=== PATIENT | female | born 1965 | race Caucasian/White ===

== ENCOUNTER 2019-09-13 19:39 | Emergency (ER) | payer OTHER ==
--- OUTSIDE RECORDS SUMMARY | 2019-09-13 19:46 | XMS REPORT | Summary of Care ---
:1965 Author Organization [facility] Address [address] [facility] [place] [address] Care Team Providers Name Role Phone Caren Sykes Primary Care Provider Reason for Visit Auth/Cert Status Reason Specialty Diagnoses / Procedures Referred By Contact Referred To Contact Diagnoses Gastro-esophageal reflux disease with esophagitis Procedures OK EGD TRANSORAL BIOPSY SINGLE/MULTIPLE Encounter Details Date Type Department Care Team Description 07/27/2019 Hospital Encounter [facility] Neetu Quintero MD Short Procedure [address] [place] [address] [place] [address] [phone] Allergies Active Allergy Reactions Severity Noted Date Comments Betadine Plus Rash 12/26/2013 Dye Allergy Rash 12/26/2013 Blue dye in dish soap Latex Rash Medium 12/26/2013 documented as of this encounter (statuses as of 07/28/2019) Medications Medication Sig Dispensed Refills Start Date End Date Status Cholecalciferol Take by mouth 0 Active (VITAMIN D) 1000 UNITS EVERY OTHER DAY. Oral Cap Multiple Vitamin Take by mouth. 0 Active (MULTIVITAMINS PO) [place]-3 Fatty Acids Take 1 Cap by 0 Active (FISH OIL) 1000 MG Oral mouth TWICE Cap DAILY. albuterol HFA Take 2 Puffs by 1 Inhaler 0 09/07/2017 Active (VENTOLIN) 108 (90 inhalation EVERY Base) MCG/ACT SIX HOURS Inhalation Aero NEEDED SolnIndications: Chest (wheezing/coughin congestion g spasm). fluticasone (FLONASE) [place] 1 [place] in 16 g 5 03/09/2018 Active 50 MCG/ACT Nasal nose TWICE DAILY. SuspensionIndications: Seasonal allergic rhinitis, unspecified trigger Additional information Patient taking differently: 1 [place] Nasal PRN, Reported on 03/30/2019 3:40 PM amLodipine (NORVASC) 5 MG Oral TAKE 1 TABLET BY MOUTH 90 Tab 1 02/15/2019 Active TabIndications: Benign EVERY DAY hypertension pantoprazole (PROTONIX) 40 MG TAKE 1 TABLET BY MOUTH 180 Tab 1 02/25/2019 Active Oral Tab ECIndications: TWICE A DAY Gastroesophageal reflux disease without esophagitis sucralfate (CARAFATE) 1 GM Oral TAKE 1 TAB BY MOUTH 120 Tab 5 2018 Active TabIndications: Gastroesophageal DIRECTED. TAKE WITH reflux disease, esophagitis MEALS AND AT BEDTIME presence not specified duloxetine (CYMBALTA) 60 MG Oral TAKE 1 CAPSULE BY MOUTH 90 Cap 1 2018 Active CAPSULE ENTERIC COATED EVERY DAY PARTICLESIndications: Fibromyalgia Losartan Potassium 100 MG Oral TAKE 1 TABLET BY MOUTH 90 Tab 1 03/23/2019 Active TabIndications: Benign EVERY DAY hypertension Misc Natural Products Take 1 Tab by mouth 0 Active (GLUCOSAMINE CHOND MSM FORMULA) TWICE DAILY. Oral Tab atorvastatin (LIPITOR) 40 MG TAKE 1 TABLET BY MOUTH 90 Tab 1 06/06/2019 Active Oral Tab EVERY DAY cyclobenzaprine (FLEXERIL) 5 MG TAKE 2 TABS BY MOUTH 120 Tab 2 06/13/2019 Active Oral TabIndications: TWO TIMES DAILY Fibromyalgia NEEDED (MUSCLE SPASM). [facility] CALCIUM CITRATE +D 315-250 TAKE 1 TABLET BY MOUTH 60 Tab 5 07/20/2019 Active MG-UNIT Oral Tab TWICE A DAY documented as of this encounter (statuses as of 07/28/2019) Active Problems Problem Noted Date Gastroesophageal reflux disease with esophagitis 01/13/2019 Gastric polyps 01/13/2019 Hepatic steatosis 06/22/2018 Impaired fasting glucose 06/22/2018 Benign hypertension 04/23/2017 Fibromyalgia 04/23/2017 IBS (irritable bowel syndrome) 04/23/2017 Lactose intolerance 04/23/2017 Mixed hyperlipidemia 04/23/2017 JIE (obstructive sleep apnea) 04/23/2017 Closed fracture of distal end of left fibula with routine healing 07/15/2016 BMI 32.0-32.9,adult 01/09/2014 Rotator cuff (capsule) sprain 01/09/2014 Impingement syndrome of left shoulder 12/26/2013 documented as of this encounter (statuses as of 07/28/2019) Social History Tobacco Use Types Packs/Day Years Used Date Never Smoker Smokeless Tobacco: Never Used Alcohol Use Drinks/Week oz/Week Comments No Sex Assigned at Date Recorded Not on file Job Start Date Occupation Industry Not on file Not on file Not on file Travel History Travel Start Travel End No recent travel history available. documented as of this encounter Last Filed Vital Signs Vital Sign Reading Time Taken Comments Blood Pressure 137/71 07/27/2019 9:20 AM EST Pulse 78 07/27/2019 9:20 AM EST Temperature 36.5 07/27/2019 6:27 AM EST C (97.7 F) Respiratory Rate 20 07/27/2019 9:20 AM EST Oxygen Saturation 96% 07/27/2019 9:20 AM EST Inhaled Oxygen Concentration - - Weight 96 kg (211 lb 9.6 oz) 07/27/2019 6:27 AM EST Height 162.6 cm (5' 4") 07/27/2019 6:27 AM EST Body Mass Index 36.32 07/27/2019 6:27 AM EST documented in this encounter Discharge Instructions InstructionsScLetty ruth NP - 07/27/2019Discharge Instructions: 1. Avoid eating solid foods for 3-4 hours after surgery. Start with liquids, and then slowly advanceto solids 2. Please seek medical attention if you should experience any nausea, vomiting, fevers, chills, or abdominal pain 3. Please take your medications as prescribed 4. Follow up in our bariatric office in 2 weeks [facility] [place] [address] [place] [place] [address] - General Surgery documented in this encounter Plan of Treatment Date Type Specialty Care Team Description 08/11/2019 Office Visit Bariatrics Neetu Quintero MD [address] [address] 08/12/2019 IPPR Dental Marcia Jenkins [facility] [address] [place] [address] [address] 04/26/2020 Office Visit Dermatology Todd Galarza PA-C [address] [place] [address] [phone] Health Maintenance Due Date Last Done Comments DTaP/Tdap/Td Vaccines (1 - 1978 Tdap) ZOSTER IMMUNIZATION SERIES 2017 (1 of 2) DEPRESSION SCREENING 12/16/2019 12/15/2018, 06/30/2017 DIABETES SCREENING 06/08/2020 06/08/2019, 12/15/2018, 11/10/2018, Additional history exists LIPID DISORDER SCREENING 06/08/2020 06/08/2019, 06/06/2019, 12/15/2018, Additional history exists MAMMOGRAM (SCREENING) 07/13/2020 07/13/2019, 07/06/2018, 06/22/2017, Additional history exists Colonoscopy 09/27/2024 09/27/2014 HEPATITIS A IMMUNIZATION Aged Out No longer eligible SERIES based on patient's age to complete this topic HPV IMMUNIZATION SERIES Aged Out No longer eligible based on patient's age to complete this topic MENINGOCOCCAL VACCINE IMM Aged Out No longer eligible based on patient's age to complete this topic PNEUMOCOCCAL 0-64 YRS Aged Out No longer eligible based on patient's age to complete this topic documented as of this encounter Goals Goal Patient Goal Associated Recent Patient-Stated? Author Type Problems Progress Blood Pressure Blood Pressure 137/71 No Abelino, < 140/90 (07/27/2019 DO Navarro 9:20 AM EST) Note: This is an individualized treatment (blood pressure) goal for Lisa Hankins: Displayed above (on the left) is your goal for blood pressure control. Your most recent blood pressure is also shown above, on the right. You should try to achieve blood pressures that are lower than your goal listed above (on the left). Weight loss vs. 18 mo Lifestyle 6.78 (07/27/2019 6:27 AM No Navarro Roca DO max (lbs) >= 10 EST) Note: This is an individualized lifestyle goal for Lisa Hankins: Your body mass index (BMI) is more than 30. You should lose weight. A reasonable starting goal is to lose 10 pounds. Displayed above is how many pounds you have lost thus far towards your 10 pound weight loss goal. Take all prescribed medications as Self-management No Schoenberg, Navarro, DO directed Note: This is an individualized self-management goal for Lisa Hankins: Please take all prescribed medications as directed. 1. Do not skip doses. If you cannot afford your medications, talk with your doctor. 2. Use a pill reminder system such as a pill box if needed. Your pharmacist can help you with this. 3. Contact your Pharmacy 5 days before your medication runs out. If you cannot take your medications for any reasons, talk with your doctor. 4. Please bring all of your medication bottles and inhalers (or a list of all your medications/inhalers) with you to every visit. Potential barriers to meeting all of your care plan goals will continue to be addressed on an ongoing basis. documented as of this encounter Procedures Procedure Name Priority Date/Time Associated Diagnosis Comments XR RPH IMAGESTREAM Routine 07/27/2019 Results for 7:38 AM EST this procedure are in the results section. EGD WITH BIOPSY Planned Trip to 07/27/2019 Gastroesophageal OR 7:32 AM EST reflux disease with esophagitis documented in this encounter Results XR RPH IMAGESTREAM (07/27/2019 7:38 AM EST) Specimen Narrative Performed At [facility] OR [facility]. If no PACS link is available, no images were [facility] POCT taken and saved to PACS. Performing Organization Address City/State/Zipcode Phone Number [facility] [address] [place] [address] documented in this encounter Visit Diagnoses Diagnosis Gastroesophageal reflux disease with esophagitis documented in this encounter Administered Medications Medication Order MAR Action Action Date Dose Rate Site FentaNYL (PF) (SUBLIMAZE) injection (PF) 25 mcg 25 mcg, Intravenous Push, PRU Q5MIN PRN, Starting Thu07/27/19 at 0855, Until Thu07/27/19 at 1219, Mild Pain (pain scale 1-3) - IV - 1st line - if immediate effect required or patient cannot tolerate PO, 4 Recovery FentaNYL (PF) (SUBLIMAZE) injection (PF) 50 mcg 50 mcg, Intravenous Push, PRU Q5MIN PRN, Starting Thu07/27/19 at 0855, Until Thu07/27/19 at 1219, Moderate Pain (pain scale 4-6) - IV - 1st line - if immediate effect required or patient cannot tolerate PO, Severe Pain (pain scale 7-10) - IV - 1st line - if immediate effect required or patient cannot tolerate PO, 4 Recovery haloperidol (HALDOL) injection 0.65 mg Given 07/27/2019 9:07 AM EST 0.65 mg 0.65 mg, Intravenous Push, PRU X1 PRN, 1 dose, Starting Thu07/27/19 at 0855, Until Thu07/27/19 at 0907, Nausea/Vomiting - IV - 3rd line - if immediate effect required or patient cannot tolerate PO and no relief 1 hour after administration of 2nd line agent, 4 Recovery HYDROmorphone (DILAUDID) syringe 0.3 mg 0.3 mg, Intravenous Push, PRU Q5MIN PRN, Starting Thu07/27/19 at 0855, Until Thu07/27/19 at 1219, Mild Pain (pain scale 1-3) IV - 2nd line - if immediate effect required or cannot tolerate PO & still had mild pain 4 hrs after admin of 1st line agent or patient did not tolerate 1st line agent, 4 Recovery HYDROmorphone (DILAUDID) syringe 0.5 mg 0.5 mg, Intravenous Push, PRU Q5MIN PRN, 2 doses, Starting Thu07/27/19 at 0855 , Until Thu07/27/19 at 1219, Moderate Pain (pain scale 4-6)IV 2nd line- if immediate effect required or cannot tolerate PO & still had moderate pain 2 hrs after admin of 1st line agent or did not tolerate 1st line agent, Severe Pain (pain scale 7-10)IV 2nd line - if immediate effect required or cannot tolerate PO & no still has severe pain 1 hr after admin of 1st line agent or did not tolerate 1st line agent, 4 Recovery meperidine (DEMEROL) syringe 25 mg 25 mg, Intravenous Push, PRU Q5MIN PRN, 2 doses, Starting Thu07/27/19 at 0855 , Until Thu07/27/19 at 1219, Shivering/Chills/Rigors, 4 Recovery normal saline IV Intravenous, at 125 mL/hr, PRU CONTINUOUS, Starting Thu07/27/19 at 0900, Until Thu07/27/19 at 1219, 4 Recovery, PRU, ondansetron (ZOFRAN) injection 4 mg 4 mg, Intravenous Push, PRU X1 PRN, 1 dose, Starting Thu07/27/19 at 0855, Until 12/18/19 at 1219, Nausea/Vomiting - IV - 1st line - If immediate effect required or patient cannot tolerate PO, 4 Recovery prochlorperazine (COMPAZINE) injection 2.5 mg 2.5 mg, Intravenous Push, PRU PRN, 2 doses, Starting Thu07/27/19 at 0855, Until Thu07/27/19 at 1219, Nausea/Vomiting - IV - 2nd line - if immediate effect required or patient cannot tolerate PO and no relief 1 hours after administration of 1st line agent, 4 Recovery scopolamine (TRANSDERM SCOP) Patch applied 07/27/2019 7:33 AM EST 1 mg Ear - Left transdermal patch 72 hour 1 mg 1 mg, Transdermal, NOW, 1 dose, Thu07/27/19 at 0730, Actual mg amount of scopolamine displayed on product package reflects total amount in the patch which includes overfill. The patch is designed to deliver 1 mg of scopolamine over 72 hours. Rotate sites. Remove prior to MRI to avoid dasilva. Please make sure to remove previous patch from site., documented in this encounter Insurance Payer Benefit Plan / Subscriber ID Effective Phone Address Type Group Dates [facility] xxxxxxxx 2017-Pre [facility] sent (Home) [place] [phone] (Work) documented as of this encounter
--- OUTSIDE RECORDS SUMMARY | 2019-09-13 19:46 | XMS REPORT | Summary of Care ---
:1965 Author Organization [facility] Address [address] [address] Care Team Providers Name Role Phone SykesCaren Primary Care Provider Reason for Referral MRI/CAT/PET Scan (Routine) Status Reason Specialty Diagnoses / Procedures Referred By Contact Referred To Contact Closed Diagnoses Abnormal mammogram Genesis Garcia MD Procedures US BREAST LIMITED LEFT [address] [address] Encounter Details Date Type Department Care Team Description 07/26/2019 Hospital Encounter Scottie De León JENNIFER Outpatient [address] [place] [address] Allergies Active Allergy Reactions Severity Noted Date [...] Take by mouth. 0 Active (MULTIVITAMINS PO) [place]-3 Fatty Acids Take 1 Cap by 0 Active (FISH OIL) 1000 MG Oral mouth TWICE Cap DAILY. albuterol HFA Take 2 Puffs by 1 Inhaler 0 09/07/2017 Active (VENTOLIN) 108 (90 inhalation EVERY Base) MCG/ACT SIX HOURS Inhalation Aero NEEDED SolnIndications: Chest (wheezing/coughin congestion g spasm). fluticasone (FLONASE) [place] 1 [place] in 16 g 5 03/09/2018 Active 50 MCG/ACT Nasal nose TWICE DAILY. SuspensionIndications: Seasonal allergic rhinitis, unspecified trigger Additional information Patient taking differently: 1 [place] Nasal PRN, Reported on 03/30/2019 3:40 PM [...] CHOND MSM FORMULA) TWICE DAILY. Oral Tab clotrimazole (LOTRIMIN) 1 % Apply twice a day to 1 Tube 0 05/19/2019 Active Apply externally affected CreamIndications: Fungal infection atorvastatin (LIPITOR) 40 MG TAKE 1 TABLET [...] of this encounter Last Filed Vital Signs Not on filedocumented in this encounter Plan of Treatment Date Type Specialty Care Team Description 08/11/2019 Office Visit Bariatrics Neetu Quintero MD [address] [address] 08/12/2019 IPPR Dental Marcia Jenkins [facility] [address] [address] 04/26/2020 Office Visit Dermatology Todd Galarza PA-C [address] [place] [address] Health Maintenance Due Date Last Done Comments [...] Take all prescribed medications as Self-management No Navarro Roca DO directed Note: This is an individualized [...] encounter Procedures Procedure Name Priority Date/Time Associated Comments Diagnosis US BREAST LIMITED Routine 07/26/2019 10:31 AM Abnormal mammogram Results for this LEFT EST procedure are in the results section. MAMMO DIAGNOSTIC Routine 07/26/2019 9:38 AM Abnormal mammogram Results for this UNILAT LEFT EST procedure are in the results section. documented in this encounter Results US BREAST LIMITED LEFT (07/26/2019 10:31 AM EST) Specimen Impressions Performed At 1. No mammographic evidence of malignancy in the left breast. 2. Finding at screening mammography is felt to correspond to normal valvular component and is retrospectively unchanged when compared to 2015 prior. Recommendation: Routine screening mammography per ACR and SBI guidelines. BI-RADS Assessment: Category 2: Benign finding(s). Urgency: Routine. This is a routine medical imaging report. Signed by Sarahi Tavarez MD on 07/26/2019 10:49 AM Narrative Performed At Procedure(s): US BREAST LIMITED LEFT, MAMMO DIAGNOSTIC UNILAT LEFT Date of service: 07/26/2019 10:13 AM Provided clinical information: 54 years, Female, "Abn jennifer; new or enlarging mass, circumscribed. DIAGNOSTIC LEFT MAMMOGRAM TECHNIQUE:. Implant displaced CC and LM as well as spot compression CC and MLO left digital diagnostic mammographic images were obtained. Images were analyzed by a CAD system. Comparison studies: Comparison is made to screening mammography dated July 13, 2019 as well as multiple prior screening mammograms dating back to May 2015 Reason for examination: Back from screening for additional views Breast composition: b. There are scattered areas of fibroglandular density. Mammographic Findings: Intact subpectoral saline implant is in place. The previously described ovoid asymmetry projecting over the valvular component of the saline implant is better demonstrated on spot compression views. This appears unchanged compared to prior exam, specifically unchanged when compared to 2015 prior left MLO view and likely reflects a component of the implant valve. As a conservative measure, further assessment with ultrasound is indicated, report of which immediately follows below: DIAGNOSTIC TARGETED LEFT BREAST ULTRASOUND Procedure and materials: Radiologist performed a targeted physical examination and real-time targeted ultrasound of left breast, accompanied by female certified performance technologist. Physical examination of the breast by radiologist demonstrates no focal palpable abnormality. Ultrasound findings: Sonographic evaluation of the left breast with specific attention to the implant capsule and implant valve demonstrates no abnormality. Procedure Note Interface, Rad Results - 07/26/2019 10:51 AM EST Procedure(s): US BREAST LIMITED LEFT, MAMMO DIAGNOSTIC UNILAT LEFT Date of service: 07/26/2019 10:13 AM Provided clinical information: 54 years, Female, "Abn jennifer; new or enlarging mass, circumscribed. DIAGNOSTIC LEFT MAMMOGRAM TECHNIQUE:. Implant displaced CC and LM as well as spot compression CC and MLO left digital diagnostic mammographic images were obtained. Images were analyzed by a CAD system. Comparison studies: Comparison is made to screening mammography dated July 13, 2019 as well as multiple prior screening mammograms dating back to May 2015 Reason for examination: Back from screening for additional views Breast composition: b. There are scattered areas of fibroglandular density. Mammographic Findings: Intact subpectoral saline implant is in place. The previously described ovoid asymmetry projecting over the valvular component of the saline implant is better demonstrated on spot compression views. This appears unchanged compared to prior exam, specifically unchanged when compared to 2014 prior left MLO view and likely reflects a component of the implant valve. As a conservative measure, further assessment with ultrasound is indicated, report of which immediately follows below: DIAGNOSTIC TARGETED LEFT BREAST ULTRASOUND Procedure and materials: Radiologist performed a targeted physical examination and real-time targeted ultrasound of left breast, accompanied by female certified performance technologist. Physical examination of the breast by radiologist demonstrates no focal palpable abnormality. Ultrasound findings: Sonographic evaluation of the left breast with specific attention to the implant capsule and implant valve demonstrates no abnormality. IMPRESSION 1. No mammographic evidence of malignancy in the left breast. 2. Finding at screening mammography is felt to correspond to normal valvular component and is retrospectively unchanged when compared to 2014 prior. Recommendation: Routine screening mammography per ACR and SBI guidelines. BI-RADS Assessment: Category 2: Benign finding(s). Urgency: Routine. This is a routine medical imaging report. Signed by Sarahi Tavarez MD on 07/26/2019 10:49 AM MAMMO DIAGNOSTIC UNILAT LEFT (07/26/2019 9:38 AM EST) Specimen Impressions Performed At 1. No mammographic evidence of malignancy in the left breast. 2. Finding at screening mammography is felt to correspond to normal valvular component and is retrospectively unchanged when compared to 2014 prior. Recommendation: Routine screening mammography per ACR and SBI guidelines. BI-RADS Assessment: Category 2: Benign finding(s). Urgency: Routine. This is a routine medical imaging report. Signed by Sarahi Tavarez MD on 07/26/2019 10:49 AM Narrative Performed At Procedure(s): US BREAST LIMITED LEFT, MAMMO DIAGNOSTIC UNILAT LEFT Date of service: 07/26/2019 10:13 AM Provided clinical information: 54 years, Female, "Abn jeninfer; new or enlarging mass, circumscribed. DIAGNOSTIC LEFT MAMMOGRAM TECHNIQUE:. Implant displaced CC and LM as well as spot compression CC and MLO left digital diagnostic mammographic images were obtained. Images were analyzed by a CAD system. Comparison studies: Comparison is made to screening mammography dated July 13, 2019 as well as multiple prior screening mammograms dating back to May 2015 Reason for examination: Back from screening for additional views Breast composition: b. There are scattered areas of fibroglandular density. Mammographic Findings: Intact subpectoral saline implant is in place. The previously described ovoid asymmetry projecting over the valvular component of the saline implant is better demonstrated on spot compression views. This appears unchanged compared to prior exam, specifically unchanged when compared to 2014 prior left MLO view and likely reflects a component of the implant valve. As a conservative measure, further assessment with ultrasound is indicated, report of which immediately follows below: DIAGNOSTIC TARGETED LEFT BREAST ULTRASOUND Procedure and materials: Radiologist performed a targeted physical examination and real-time targeted ultrasound of left breast, accompanied by female certified performance technologist. Physical examination of the breast by radiologist demonstrates no focal palpable abnormality. Ultrasound findings: Sonographic evaluation of the left breast with specific attention to the implant capsule and implant valve demonstrates no abnormality. Procedure Note Interface, Rad Results - 07/26/2019 10:51 AM EST Procedure(s): US BREAST LIMITED LEFT, MAMMO DIAGNOSTIC UNILAT LEFT Date of service: 07/26/2019 10:13 AM Provided clinical information: 54 years, Female, "Abn jennifer; new or enlarging mass, circumscribed. DIAGNOSTIC LEFT MAMMOGRAM TECHNIQUE:. Implant displaced CC and LM as well as spot compression CC and MLO left digital diagnostic mammographic images were obtained. Images were analyzed by a CAD system. Comparison studies: Comparison is made to screening mammography dated July 13, 2019 as well as multiple prior screening mammograms dating back to May 2015 Reason for examination: Back from screening for additional views Breast composition: b. There are scattered areas of fibroglandular density. Mammographic Findings: Intact subpectoral saline implant is in place. The previously described ovoid asymmetry projecting over the valvular component of the saline implant is better demonstrated on spot compression views. This appears unchanged compared to prior exam, specifically unchanged when compared to 2014 prior left MLO view and likely reflects a component of the implant valve. As a conservative measure, further assessment with ultrasound is indicated, report of which immediately follows below: DIAGNOSTIC TARGETED LEFT BREAST ULTRASOUND Procedure and materials: Radiologist performed a targeted physical examination and real-time targeted ultrasound of left breast, accompanied by female certified performance technologist. Physical examination of the breast by radiologist demonstrates no focal palpable abnormality. Ultrasound findings: Sonographic evaluation of the left breast with specific attention to the implant capsule and implant valve demonstrates no abnormality. IMPRESSION 1. No mammographic evidence of malignancy in the left breast. 2. Finding at screening mammography is felt to correspond to normal valvular component and is retrospectively unchanged when compared to 2015 prior. Recommendation: Routine screening mammography per ACR and SBI guidelines. BI-RADS Assessment: Category 2: Benign finding(s). Urgency: Routine. This is a routine medical imaging report. Signed by Sarahi Tavarez MD on 07/26/2019 10:49 AM documented in this encounter Visit Diagnoses Diagnosis Abnormal mammogram Abnormal mammogram, unspecified documented in this encounter Insurance Payer Benefit Plan / Subscriber ID Effective Phone Address Type Group Dates [facility] xxxxxxxx 2017-Pre [facility] sent (Home) [place], [place] [phone] (Work) documented as of this encounter
--- OUTSIDE RECORDS SUMMARY | 2019-09-13 19:46 | XMS REPORT | Continuity of Care Document ---
:1965 External Reference #:[id number] Author Name Lucie Donahue PA Address [address] [place] [address] Care Team Providers Name Role Phone Lucie Donahue PA - Medical Care Team Information Fabric Machine Operator [phone] Problems Active Problems Provider Date Benign essential hypertension Lucie Donahue PA Onset: 08/19/2019 Allergic rhinitis Lucie Donahue PA Onset: 08/19/2019 Diaphragmatic hernia Lucie Donahue PA Onset: 08/19/2019 Obstructive sleep apnea syndrome Lucie Donahue PA Onset: 08/19/2019 Fibromyalgia Lucie Donahue PA Onset: 08/19/2019 Herniation of rectum into vagina Lucie Donahue PA Onset: 08/19/2019 Midline cystocele Lucie Donahue PA Onset: 08/19/2019 Intestinal disaccharidase deficiency Lucie Donahue PA Onset: 08/19/2019 Irritable bowel syndrome characterized by Lucie Donahue PA Onset: 08/19/2019 alternating bowel habit Gastroesophageal reflux disease Lucie Donahue PA Onset: 08/19/2019 Hyperlipidemia Lucie Donahue PA Onset: 08/19/2019 Social History Type Date Description Comments Sex Unknown ETOH Use Rarely consumes alcohol Tobacco Use Start: Unknown Patient has never smoked Smoking Status Reviewed: 08/19/19 Patient has never smoked Exercise Exercises rarely Light exercise Type/Frequency irritates the Fibromyalgia. Allergies, Adverse Reactions, Alerts Active Allergies Reaction Severity Comments Date Latex 08/19/2019 Betadine 08/19/2019 Blue Dyes (Parenteral) 08/19/2019 Medications Active Medications SIG Qnty Indications Ordering Provider Date Cyclobenzaprine HCL 1 tab by mouth Rhoda Cortez, 08/19/2019 10mg twice a day MD Tablets Cymbalta 1 by mouth every Unknown 60mg Caps DR Part day Losartan Potassium 1 by mouth every Unknown 100mg day Tablets Amlodipine Besylate 1 by mouth every Unknown 5mg day Tablets Atorvastatin Calcium 1 by mouth every Unknown 40mg day at bedtime Tablets Calcium Citrate + D 1 tabs by mouth Unknown every day [id number]-Eqrx Tablets Pantoprazole Sodium 1 by mouth every Unknown 40mg day Tablets DR Multivitamin Adults 50+ 1 by mouth every Unknown Adlt day 50+ Tablets D3 High Potency take 4x a week Unknown 50mcg (2000 Ut) Capsules Fish Oil 1capsule by Unknown 1200mg Capsules mouth two times a day SM Glucosamine HCL-MSM am and pm Unknown 750-750mg Tablets Senna-Lax 1 tab by mouth Unknown 8.6mg Tablets twice a day Immunizations CPT Code Status Date Vaccine Lot # [id number] Refused 08/19/2019 Influenza Virus Vaccine, Quadrivalent, 36 Mos+, .5ML Vital Signs Date Vital Result Comment 08/19/2019 8:52am BP Systolic 122 mmHg BP Diastolic 60 mmHg Body Temperature 97.5 F Heart Rate 94 /min Respiratory Rate 18 /min Height 64 inches 5'4" Weight 213.25 lb BMI (Body Mass Index) 36.6 kg/m2 BSA (Body Surface Area) 2.01 m2 [place] body weight in kilograms 54 kg O2 % BldC Oximetry 97 % Results Test Acquired Date Facility Test Result H/L Range Note Urine Dipstick 08/19/2019 [facility]a Color yellow Yellow Ua Clarity clear Clear Ua Leuko negative Negative Ua Nitrite negative Negative Ua Urobilinogen 0.2 0.2 - 1.0 E.U./dL Ua Protein negative Negative Ua PH 6.0 Low 6.5-7.5 Ua Blood negative Negative Ua Specific [place] 1.020 1.010-1.030 Ua Ketones negative Negative Ua Bilirubin negative Negative Ua Glucose 30 mmol/L High Negative Procedures Date Code Description Status 07/10/2019 [id number] Mammogram Completed 08/10/2013 83624606 Colonoscopy Completed 09/12/2009 [id number] Mammogram Completed Medical Devices Description No Information Available Encounters Description No Information Available Assessments Date Code Description Provider 08/19/2019 I10 Essential (primary) hypertension Lucie Donahue PA 08/19/2019 E78.5 Hyperlipidemia, unspecified Lucie Donahue PA 08/19/2019 K21.9 Gastro-esophageal reflux disease without Lucie Donahue PA esophagitis 08/19/2019 M79.7 Fibromyalgia Lucie Donahue PA 08/19/2019 K58.2 Mixed irritable bowel syndrome Lucie Donahue PA 08/19/2019 E73.9 Lactose intolerance, unspecified Lucie Donahue PA 08/19/2019 N81.10 Cystocele, unspecified Lucie Donahue PA 08/19/2019 N81.6 Rectocele Lucie Donahue PA 08/19/2019 G47.33 Obstructive sleep apnea (adult) (pediatric) Lucie Donahue PA 08/19/2019 R30.0 Dysuria Lucie Donahue PA 08/19/2019 K44.9 Diaphragmatic hernia without obstruction or Lucie Donahue PA gangrene 08/19/2019 J30.9 Allergic rhinitis, unspecified Lucie Donahue PA Plan of Treatment Future Appointment(s):11/29/2019 11:30 am - Lucie Donahue PA at [facility] RD08/19/2019 - Lucie Donahue PAI10 Essential (primary) hypertensionFollow up:PE in November Record release for [facility] Patient portal.E78.5 Hyperlipidemia, unspecifiedComments:Currently well controlledContinue w healthy diet and Atorvastatin.K21.9 Gastro-esophageal reflux disease without esophagitisComments:Limit spicy and acidic foods in the diet. Eat small meals and snacks. Avoid eating just prior to bedtime. Elevated the head of the bed to reduce nighttime symptoms. Surgery planned. Hopefully this will bring resolution.M79.7 FibromyalgiaComments:Sy are well controlled.K58.2 Mixed irritable bowel kezqvbeaS47.9 Lactose intolerance, ffsgsseiueuE94.10 Cystocele, unspecifiedComments:Check pelvic exam at next visit. Pelic floor therapy may be helpful.N81.6 HxgpntowqO31.33 Obstructive sleep apnea (adult) (pediatric)Comments:Using CPAP and O2. Will require portable O2 for frequent work related travel.R30.0 DysuriaComments:urine dip today. Culture and treat if indicated. Clear fluids. Push clear fluids. Cranberry juice can help. Otherwise, . Limit sugars.Wash and rinse thoroughly. Wipe front to back.Frequent bathroom breaks. Labs are pending. Will treat as indicated.K44.9 Diaphragmatic hernia without obstruction or gangreneComments: Surgery planned.J30.9 Allergic rhinitis, unspecifiedComments:Resume Zyrtec. We can add Flonase if needed. Call for persistent symptoms.AllNew Medication: Cyclobenzaprine HCL 10 mg - 1 tab by mouth twice a day Functional Status Description No Information Available Mental Status Description No Information Available Referrals Description No Information Available
--- OUTSIDE RECORDS SUMMARY | 2019-09-13 19:46 | XMS REPORT | Summary of Care ---
:1965 Author Organization [facility] Address [address] [facility] [place] [address] Care Team Providers Name Role Phone Onel Caren Primary Care Provider Reason for Visit Reason Comments Follow Up Encounter Details Date Type Department Care Team Description 08/11/2019 Office Visit [facility] Neetu Quintero, Hiatal hernia ( Primary Dx); Center Gastroesophageal reflux disease without esophagitis; [address] [place] [address] Bile reflux gastritis [place] [address] [place] [phone] Allergies Active Allergy Reactions Severity Noted Date Comments Betadine Plus Rash 12/26/2013 Dye Allergy Rash 12/26/2013 Blue dye in dish soap Latex Rash Medium 12/26/2013 documented as of this encounter (statuses as of 08/11/2019) Medications Medication Sig Dispensed Refills Start Date End Date Status Cholecalciferol Take by mouth 0 Active (VITAMIN D) 1000 UNITS EVERY OTHER DAY. Oral Cap Multiple Vitamin Take by mouth. 0 Active (MULTIVITAMINS PO) [place]-3 Fatty Acids Take 1 Cap by 0 Active (FISH OIL) 1000 MG Oral mouth TWICE Cap DAILY. albuterol HFA Take 2 Puffs by 1 Inhaler 0 09/07/2017 Active (VENTOLIN) 108 (90 inhalation EVERY Base) MCG/ACT SIX HOURS Inhalation Aero NEEDED SolnIndications: Chest (wheezing/coughin congestion g spasm). fluticasone (FLONASE) [place] 1 [place] in 16 g 5 03/09/2018 Active 50 MCG/ACT Nasal nose TWICE DAILY. SuspensionIndications: Seasonal allergic rhinitis, unspecified trigger Additional information Patient taking differently: 1 [place] Nasal PRN, Reported on 03/30/2019 3:40 PM pantoprazole (PROTONIX) 40 MG TAKE 1 TABLET [...] Active MG-UNIT Oral Tab TWICE A DAY amLodipine (NORVASC) 5 MG Oral TAKE 1 TABLET BY MOUTH 90 Tab 1 08/01/2019 Active TabIndications: Benign EVERY DAY hypertension documented as of this encounter (statuses as of 08/11/2019) Active Problems Problem Noted Date Gastroesophageal reflux [...] as of this encounter (statuses as of 08/11/2019) Social History Tobacco Use Types Packs/Day Years [...] Sign Reading Time Taken Comments Blood Pressure - - Pulse 84 08/11/2019 1:05 PM EST Temperature - - Respiratory Rate - - Oxygen Saturation 99% 08/11/2019 1:05 PM EST Inhaled Oxygen Concentration - - Weight - - Height - - Body Mass Index - - documented in this encounter Progress Notes Neetu Quintero MD - 08/11/2019 1:00 PM EST [facility] GENERAL SURGERY OFFICE VISIT NOTE PATIENT: Lisa Hankins : 1965 DATE OF SERVICE: 08/11/2019 REFERRING PRACTITIONER: Neetu Quintero PRIMARY CARE PROVIDER: Caren Sykes CHIEF COMPLAINT: Morbid Obesity HISTORY OF PRESENT ILLNESS: Lisa Hankins is a 54-y.o. female who is here today for ongoing follow up. She has symptoms of severe acid reflux. This has been present for many years, and it's been refractory to maximal medical therapy. She's been on PPI for years. She is currently on Pantoprazole 40mg BID and Carafate 1mg QID. She also started taking an over the counter antacid. She's had two previous upper endoscopies and a DAVIS study. She has a hiatal hernia, gastritis, and a positive DAVIS pH study with DeMeester score of28.6. She recently had an upper endoscopy demonstrating a 3 to 4 cm hiatal hernia as well as bile reflux gastritis in the stomach. Past Medical History: ICD-9-CM ICD-10-CM 1. Hiatal hernia 553.3 K44.9 2. Gastroesophageal reflux disease without esophagitis 530.81 K21.9 3. Bile reflux gastritis 535.40 K29.60 Past Surgical History: Tubal ligation Hysterectomy Vaginal Laparoscopic Cholecystectomy Left Elbow Surgery x 2 (has hardware there) Bilateral breast augmentation, Panniculectomy, and Liposuction on thigh Social History: No tobacco Rare alcohol No illicit drugs Has healthy twins Self-employed (has Craft business making T-shirts) Has two [employer] degrees (early education and accounting) Lives in [place], [place] Family History: No family hx of unusual reaction to surgery or anesthesia Medications & Allergies: I have reviewed patient's current medication list and allergy list that is noted in the medical record, and discussed them with the patient. Pertinent findings relative to today's visit includes: none REVIEW OF SYSTEMS: CONSTITUTIONAL: negative for fevers or chills. EYES: negative for double vision EARS, NOSE, MOUTH, THROAT and FACE: negative for nasal congestion or sore throat. RESPIRATORY: negative for shortness of breath. CARDIOVASCULAR: negative for chest pressure/discomfort. GASTROINTESTINAL: negative for hematemesis or blood per rectum GENITOURINARY: No urinary tract infection. INTEGUMENT: negative for rash HEMATOLOGIC/LYMPHATIC: negative for easy bruising and bleeding. MUSCULOSKELETAL: negative for muscle weakness. NEUROLOGICAL: negative for seizures. BEHAVIORAL/PSYCH: No suicidal or homicidal ideation. PHYSICAL EXAM: Pulse 84 | SpO2 99% GENERAL: Well-developed, well-nourished. In no acute distress HEENT: Normocephalic, atraumatic. Extraocular movements intact. NECK: Supple, no jugular venous distention, no lymphadenopathy LUNGS: bilateral breath sounds present, no wheezes noted CARDIOVASCULAR: regular rate and rhythm, no murmurs, rubs or gallops. ABDOMEN: Soft, non-tender, non-distended. No masses. No organomegaly. FLANK TENDERNESS: absent RECTAL: Deferred SKIN: no rash or abnormalities. EXTREMITIES: no focal neurologic deficits PSYCHIATRIC: No active psychoses or hallucinations LABS: none TESTING: I reviewed patient's upper endoscopy studies which show a hiatal hernia, esophagitis, and fundic gland polyps. I also reviewed the patient's Davis pH study, which shows notable esophageal acid exposure with a DeMeester score of 28.6. IMPRESSION: ICD-9-CM ICD-10-CM 1. Hiatal hernia 553.3 K44.9 2. Gastroesophageal reflux disease without esophagitis 530.81 K21.9 3. Bile reflux gastritis 535.40 K29.60 ASSESSMENT & PLAN: Lisa Hankins is a 54-y.o. female with a history of longstanding acid reflux refractory to maximalmedical therapy. Patient has evidence of gastritis and also has a hiatal hernia present. We will plan to proceed with the following operation: 1) Laparoscopic Hiatal Hernia Repair 2) Laparoscopic Renetta Fundoplication 3) Upper Endoscopy Discussed with patient in detail. We will have patient come in for a final preoperative visit once insurance authorization has been obtained. I personally saw and examined the patient during this office visit. I have personally obtained or reviewed the patient's history, and I performed the physical exam. I have also reviewed relevant results of laboratory tests, imaging studies, pathology results, and procedures relevant to the care of thepatient. I have reviewed parts of the medical record relevant to this patient 's care (such as notes of the primary care physician or other consultants). Author: Neetu Quintero MD 08/11/2019 13:31 documented in this encounter Plan of Treatment Date Type Specialty Care Team Description 08/12/2019 IPPR Dental Marcia Jenkins, [address] [place] [id number] 04/26/2020 Office Visit [...] an individualized treatment (blood pressure) goal for Lias Hankins: Displayed above (on the left) is [...] goal. Take all prescribed medications as Self-management Navarro Disla DO directed Note: This is an individualized [...] ongoing basis. documented as of this encounter Results Not on filedocumented in this encounter Visit Diagnoses Diagnosis Hiatal hernia Diaphragmatic hernia without mention of obstruction or gangrene Gastroesophageal reflux disease without esophagitis Esophageal reflux Bile reflux gastritis Other specified gastritis without mention of hemorrhage documented in this encounter Insurance Payer Benefit Plan / Subscriber ID Effective Dates Phone Address Type Group [place] xxxxxxxx 2019-Present Medicaid [place] Guarantor Name Account Type Relation to Date of Phone Billing Patient Address Lisa Hankins Personal/Family 1965 [address] (Home) [place] [phone] [id number] (Work) documented as of this encounter"
[2019-09-13 20:21] VITALS: BP 134/57
--- NOTE | 2019-09-13 20:48 | UC ---
Throat Pain/Nasal Chad HPI - HPI Summary HPI Summary: 54 yo with hx of reflux, pending corrective surgery, with 10 days of off and on sore throat, without associated cough, fever or headache. She has had tonsillectomy in the past. No nausea, vomiting or diarrhea, and no infectious contacts. - History of Current Complaint Chief Complaint: UCRespiratory Stated Complaint: SORE THROAT Time Seen by Provider: 09/13/19 20:40 Hx Obtained From: Patient Onset/Duration: Gradual Onset, Lasting Days Pain Intensity: 0 Cough: None Associated Signs & Symptoms: Positive: Dysphagia - Epiglottits Risk Factors Epiglottis Risk Factors: Negative - Allergies/Home Medications Allergies/Adverse Reactions: Allergies Allergy/AdvReac Type Severity Reaction Status Date / Time blue dye Allergy Unknown localized Verified 09/13/19 20:04 rash latex Allergy Unknown Itching Verified 09/13/19 20:05 povidone-iodine Allergy Unknown Rash Verified 09/13/19 20:05 [From Betadine] soap [From Betadine] Allergy Unknown Rash Verified 09/13/19 20:05 Home Medications: Home Medications Atorvastatin* [Lipitor*] 40 mg PO QPM 09/13/19 [History Confirmed 09/13/19] Cholecalciferol TAB* [Vitamin D TAB*] 1,000 unit PO EVERY OTHER DAY 09/13/19 [ History Confirmed 09/13/19] Losartan Potassium 100 mg PO DAILY 09/13/19 [History Confirmed 09/13/19] Pantoprazole TAB * [Protonix TAB*] 40 mg PO BID 09/13/19 [History Confirmed 11/27] amLODIPine TAB* [Norvasc 5 mg TAB*] 5 mg PO DAILY 09/13/19 [History Confirmed ] PMH/Surg Hx/FS Hx/Imm Hx Cardiovascular History: Hypertension GI/ History: Gastroesophageal Reflux Psychological History: Depression, Other - chronic pain secondary to fibromyalgia - Surgical History Surgical History: Yes Surgery Procedure, Year, and Place: 03/15/14 hysterectomy. 07/20 gallbladder. 2002 abdominalplasty, lipo. 06/10 rt carpal tunnel. 12/1996 tubal and umbilical hernia repair. 09/1988 c section. 1983 left elbow repair - Family History Known Family History: Positive: Hypertension - Social History Occupation: Employed Full-time Lives: With Family Alcohol Use: None Substance Use Type: None Smoking Status (MU): Never Smoked Tobacco Review of Systems All Other Systems Reviewed And Are Negative: Yes Constitutional: Positive: Negative Skin: Positive: Negative Eyes: Positive: Negative ENT: Positive: Sore Throat Respiratory: Positive: Negative, Other. Negative: Cough Cardiovascular: Positive: Negative. Negative: Chest Pain Gastrointestinal: Positive: Negative Genitourinary: Positive: Negative Motor: Positive: Negative Neurovascular: Positive: Negative Musculoskeletal: Positive: Myalgia Neurological: Positive: Negative Psychological: Positive: Negative Is Patient Immunocompromised?: No Physical Exam Triage Information Reviewed: Yes Appearance: Well-Appearing, No Pain Distress Vital Signs: Initial Vital Signs Temp 97.4 F 09/13/19 20:13 Pulse 85 09/13/19 20:13 Resp 17 09/13/19 20:13 BP 134/57 09/13/19 20:13 Pulse Ox 100 09/13/19 20:13 Eyes: Positive: Conjunctiva Clear ENT: Positive: Pharyngeal erythema. Negative: Tonsillar swelling - past tonsillectomy Dental Exam: Normal Neck: Positive: Supple, Nontender, No Lymphadenopathy Respiratory: Positive: Lungs clear, Normal breath sounds, No respiratory distress Cardiovascular: Positive: RRR, No Murmur Musculoskeletal Exam: Normal Neurological Exam: Normal Psychological Exam: Normal Skin Exam: Normal Diagnostics - Laboratory Lab Results: rapid strep negative. Throat Pain/Nasal Course/Dx - Course Course Of Treatment: symptomatic treatment of viral uri - Differential Dx/Diagnosis Differential Diagnosis/HQI/PQRI: Pharyngitis, Sinusitis Provider Diagnosis: Pharyngitis Discharge ED - Sign-Out/Discharge Documenting (check all that apply): Patient Departure All imaging exams completed and their final reports reviewed: No Studies - Discharge Plan Condition: Stable Disposition: HOME Patient Education Materials: Pharyngitis (ED) Referrals: Lucie Donahue PA [Primary Care Provider] - Additional Instructions: Rapid strep testing is negative. Continue symptomatic treatment with warm drinks, gargling with warm water and salt, and acetaminophen as needed for control of pain. - Billing Disposition and Condition Condition: STABLE Disposition: Home
== END 2019-09-13 21:08 | disposition home or self-care (01) ==
LOC: UCCORT 19:39
DX: J02.9 Acute pharyngitis, unspecified (principal); I10 Essential (primary) hypertension; K21.9 Gastro-esophageal reflux disease without esophagitis; G89.29 Other chronic pain; M79.7 Fibromyalgia; M79.10 Myalgia, unspecified site; Z91.09 Other allergy status, other than to drugs and biological substances; Z91.040 Latex allergy status; Z79.899 Other long term (current) drug therapy
CPT/HCPCS: 87651; 99201; G0463